=== PATIENT | female | born 2000 | race African-American/Black ===

== ENCOUNTER 2021-02-09 17:16 | Emergency (ER) | payer MEDICAID, SELFPAY ==
[~2021-02-09] VITALS: Ht 162.6 cm; Wt 60.4 kg
[2021-02-09] MEDS ORDERED: LIDOCAINE 5% OINT 30GM TUBE TOP ONE (20:20)
[2021-02-09] MEDS ORDERED: valACYclovir HCL 500 MG TAB PO ONE (20:20)
[2021-02-09 21:11] LABS: GC DNA AMPLIFICATION NEGATIVE (NEGATIVE)
[2021-02-09] MEDS ORDERED: metroNIDAZOLE (FLAGYL) 500MG TABLET PO ONE (21:20)
[2021-02-09] MEDS ORDERED: DOXYCYCLINE HYCLATE 100MG TABLET PO ONE (21:20)
[2021-02-09] MEDS ORDERED: FLAG500T PO (21:25)
[2021-02-09] MEDS ORDERED: LIDO5OIN19 TOP (21:25)
[2021-02-09] MEDS ORDERED: DOXY1CAP62 PO (21:25)
[2021-02-09] MEDS ORDERED: VALA1TAB5 PO (21:25)
[2021-02-09] MEDS ORDERED: ONDA-83 PO (21:29)
[2021-02-09 21:45] VITALS: BP 101/56
== END 2021-02-09 22:10 | disposition home or self-care (01) ==
LOC: M ED 17:16
DX: A74.9 Chlamydial infection, unspecified (principal); N76.0 Acute vaginitis; F12.20 Cannabis dependence, uncomplicated